=== PATIENT | female | born 1970 | race Caucasian/White ===

== ENCOUNTER 2019-08-15 10:30 | Emergency (ER) | payer OTHER, SELFPAY ==
[2019-08-15 10:35] VITALS: BMI 27.3
[2019-08-15 10:39] VITALS: BP 128/79; PULSE 70; RESP 16; TEMP 36.4; O2SAT 98
--- NOTE | 2019-08-15 10:45 | ED_ITS ---
HPI - Animal Bite General: Chief Complaint: Animal Bite Stated Complaint: CAT BITES Time Seen by Provider: 08/15/19 10:38 History of Present Illness: HPI narrative: Patient was picking up a cat that she found in a park to get ready take to that for vaccinations and she got scratched and bit on the right arm and hand patient is up-to-date on rabies vaccine series received last August complaint: animal bite Onset (ago): minute(s) Animal: cat Description of animal: appeared well Mechanism: bite and scratch Location: other Location - Extremities: Right: forearm and hand Pain description: sharp Severity scale (1-10): 3 Context: provoked Associated symptoms: Reports no associated symptoms; Deny chills, fever(s) or headache(s) Review of Systems Const: Denies: fever(s), chills or body aches Eyes: Denies: change in vision or blurry vision ENMT: Denies: throat pain or nasal congestion Card: Denies: chest pain or dyspnea on exertion Resp: Denies: dyspnea, productive cough or non-productive cough GI: Denies: abdominal pain, nausea or vomiting Musc: Denies: extremity pain Skin/Breast: Reports: other (Cat bite and scratches to right hand and forearm); Denies: rash Neuro: Denies: headache(s) Psych: Denies: anxiety or depression Kj/Lymph: Denies: easy bruising [facility] PFSH: Social History (Updated 05/18/19 @ 13:31 by Shanon Sosa LPN) Smoking and tobacco status: never smoked Alcohol intake: never Physical Exam Const: COMMON NORMALS: no acute distress, average body habitus and patient oriented x3 HENMT: COMMON NORMALS: normocephalic HEAD & SCALP: normal to inspection and normocephalic FACE & SINUS: normal facial exam Eye: COMMON NORMALS: conjunctivae normal GENERAL EYE: appearance normal, both eyes and all related structures CONJUNCTIVA: Yes conjunctivae normal Neck/C-Spine: COMMON NORMALS: no JVD Chest: COMMONS NORMALS: normal inspection of the chest Resp: COMMON NORMALS: normal respiratory effort and clear to auscultation bilaterally AUSCULTATION: clear to auscultation bilaterally Cardio: COMMON NORMALS: no JVD, regular rate and regular rhythm RATE: regular rate RHYTHM: regular rhythm GI: COMMON NORMALS: Normal to inspection, nondistended, normoactive bowel sounds present Extremity: COMMON NORMALS: normal to inspection and full ROM Neuro: COMMON NORMALS: patient oriented x3 Skin: NARRATIVE SKIN EXAM: Bite to base of her thumb and multiple scratches on hand and forearm right side Course Vital Signs: Vital signs: Vital Signs Temperature 97.6 F 08/15/19 10:39 Pulse Rate 70 08/15/19 10:39 Respiratory Rate 16 08/15/19 10:39 Blood Pressure 128/79 08/15/19 10:39 Pulse Oximetry 98 08/15/19 10:39 Discharge Plan Discharge Prescriptions: No Action cream base no.87 (bulk) Cream topical .WEEKLY RF: 0 Humira(CF) 40 mg/0.4 mL syringe kit 40 mg SUBCUT Q14D RF: 0 levothyroxine [Synthroid] 150 mcg tablet 150 mcg PO DAILY RF: 0 erythromycin 5 mg/gram (0.5 %) ointment 0.5 inch ophthalmic (eye) QID Qty: 3.5 RF: 0 Coding Level of Care Code ED Sales Account Manager for Chg Fwd Exam Comprehensive
[2019-08-15] MEDS: tetanus-dipt-pertussis 0.5 mL SDV IM (11:02)
[2019-08-15] MEDS: acetaminophen 500 mg Tablet 1000 MG PO (11:07)
[2019-08-15 11:09] VITALS: BP 130/83; PULSE 72; RESP 18; O2SAT 98
== END 2019-08-15 11:09 | disposition home or self-care (01) ==
LOC: ER 11:52
PROVIDERS: Emergency Provider Nurse Practitioner Family
DX: S61.051A Open bite of right thumb without damage to nail, initial encounter (principal); W55.01XA Bitten by cat, initial encounter; S60.511A Abrasion of right hand, initial encounter; S50.811A Abrasion of right forearm, initial encounter; W55.03XA Scratched by cat, initial encounter; Z23 Encounter for immunization
CPT/HCPCS: 12345; 90715; 99281; 99283